=== PATIENT | male | born 1970 | race African-American/Black ===

== ENCOUNTER 2021-05-20 04:57 | Emergency (ER) | payer SELFPAY ==
[~2021-05-20] VITALS: Ht 177.8 cm; Wt 79.0 kg
[2021-05-20 05:12] VITALS: BP 133/105
== END 2021-05-20 05:35 | disposition home or self-care (01) ==
LOC: ER 04:57
DX: R00.0 Tachycardia, unspecified (principal); F20.9 Schizophrenia, unspecified; F31.9 Bipolar disorder, unspecified; M41.9 Scoliosis, unspecified; V43.52XA Car driver injured in collision with other type car in traffic accident, initial encounter; Y93.89 Activity, other specified; Y92.488 Other paved roadways as the place of occurrence of the external cause; Y99.8 Other external cause status
CPT/HCPCS: 93005; 99283